=== PATIENT | male | born 1985 | race African-American/Black ===

== ENCOUNTER 2021-08-13 15:29 | Emergency (ER) | payer SELFPAY ==
[2021-08-13] MEDS ORDERED: Ondansetron 4 MG/2 ML SDV IVPUSH ONE ×2 (16:19→16:34)
[2021-08-13] MEDS ORDERED: Sodium Chloride 0.9% 1,000 ML IV ONE (16:19)
[2021-08-13] MEDS ORDERED: Ketorolac 30 MG/ML SDV IVPUSH ONE (16:19)
--- NOTE | 2021-08-13 16:36 | EDM.PDOC ---
ED HPI GENERAL MEDICAL PROBLEM - General Chief Complaint: Headache Stated Complaint: MIGRAAINE Time Seen by Provider: 08/13/21 15:33 Source of Information: Reports: Patient History Limitations: Reports: No Limitations - History of Present Illness INITIAL COMMENTS - FREE TEXT/NARRATIVE: HISTORY AND PHYSICAL: History of present illness: Patient is a 35-year-old male, who identifies as female, presents to the emergency room with complaints of headache, nausea, increased thirst, and urination over the past few days. Patient is concerned he may have diabetes as this does run in his family. Patient currently does do hormone therapy although there has not been any changes on this. Patient denies any fever, chills, headache, change in vision, syncope or near syncope. Denies any chest pain, back pain, shortness of breath or cough. Denies any abdominal pain, diarrhea, constipation or dysuria. Has not noted any blood in urine or stool. Patient has been eating and drinking appropriately. No recent travel or sick contacts. Review of systems: As per history of present illness and below otherwise all systems reviewed and negative. Past medical history: As per history of present illness and as reviewed below otherwise noncontributory. Surgical history: As per history of present illness and as reviewed below otherwise noncontributory. Social history: See social history for further information Family history: As per history of present illness and as reviewed below otherwise noncontributory. Physical exam: General: Well developed and well nourished. Alert and orientated x 3. Nontoxic in appearance and in no acute distress. Vital signs are stable and have been reviewed by me. Nursing notes were reviewed. HEENT: Atraumatic, normocephalic, pupils equal and reactive bilaterally, negative for conjunctival pallor or scleral icterus, mucous membranes moist, TMs normal bilaterally, throat clear, neck supple, nontender, trachea midline. No drooling or trismus noted. No meningeal signs. No hot potato voice noted. Lungs: Clear to auscultation bilaterally. No wheezes, rales, or rhonchi. Chest nontender. Normal work of breathing, no accessory muscles used. Heart: S1S2, regular rate and rhythm without overt murmur, gallops, or rubs. No JVD. No peripheral edema Abdomen: Soft, nondistended, nontender. Normoactive bowel sounds. Negative for masses or costovertebral tenderness. Pelvis: Stable nontender. Skin: Intact, warm, dry. No lesions or rashes noted. Hematologic: No petechiae or purpra. Mucosa appropriate color and normal nail bed color and refill. Extremities: Atraumatic, moves all extremities per self without difficulty or deficits, negative for cords or calf pain. Neurovascular unremarkable. Neuro: Awake, alert, oriented. Cranial nerves II through XII unremarkable. Cerebellum unremarkable. Motor and sensory unremarkable throughout. Exam nonfocal. Psychiatric: Mood and affect are appropriate. Normal thought process. Answering questions appropriately. Please note that the patient was seen and evaluated during the 2019 SARS-CoV-2 novel coronavirus pandemic period. Community viral transmission is ongoing at time of this encounter and the emergency department is operating under pandemic response procedures. Medical Decision Making: Patient is a 35-year-old male who presents to the emergency room with complaints of a headache, nausea and concerns of diabetes. States that diabetes runs in his family and he is concerned that his symptoms are related to high blood sugar. Physical exam is unremarkable. Patient currently does take hormone therapy, transitioning from male to female. States he has not had any recent changes in medication. Patient does feel improved after IV fluids and medication. Lab work is unremarkable. I have talked with the patient about today's findings, in addition to providing specific details for plan of care. Reassessment at the time of disposition demonstrates that the patient is in no acute distress. The patient is stable for discharge, counseling was provided and we discussed in great detail signs and symptoms that would prompt them to return to the Emergency Department. Medication, follow up and supportive care measures were reviewed and discussed. Voices understanding and is agreeable to plan of care. Denies any further questions or concerns at this time. Diagnostics: CBC, CMP Therapeutics: IV fluids, Toradol Prescription: None Impression: Headache Plan: 1. You were evaluated today on an emergent basis. Your labs are normal today. If your symptoms should worsen, new symptoms develop or any of the signs and symptoms we discussed should arise please return to the emergency room or call 911 (if needed). 2. You can alternate Tylenol and ibuprofen as needed for pain and fever management. 3. We encourage you to follow up with your primary care provider and/or recommended specialist in the next few days for re-evaluation and further care/management. Definitive disposition and diagnosis as appropriate pending reevaluation and review of above. headache Pain Score (Numeric/FACES): 5 - Related Data Allergies Allergy/AdvReac Type Severity Reaction Status Date / Time No Known Allergies Allergy Verified 08/13/21 16:21 Home Meds: Home Meds Estriol 0.25 mg IM WEEKLY 08/13/21 [History] Progesterone, Micronized [Progesterone] 1 tab PO DAILY 08/13/21 [History] Past Medical History HEENT History: Reports: None Cardiovascular History: Reports: None Respiratory History: Reports: Asthma Gastrointestinal History: Reports: None Genitourinary History: Reports: None Musculoskeletal History: Reports: None Neurological History: Reports: None Psychiatric History: Reports: None Endocrine/Metabolic History: Reports: None Hematologic History: Reports: None Immunologic History: Reports: None Oncologic (Cancer) History: Reports: None Dermatologic History: Reports: None - Infectious Disease History Infectious Disease History: Reports: None - Past Surgical History Head Surgeries/Procedures: Reports: None HEENT Surgical History: Reports: None Cardiovascular Surgical History: Reports: None Respiratory Surgical History: Reports: None GI Surgical History: Reports: None Male Surgical History: Reports: None Endocrine Surgical History: Reports: None Neurological Surgical History: Reports: None Musculoskeletal Surgical History: Reports: None Oncologic Surgical History: Reports: None Dermatological Surgical History: Reports: None Social & Family History - Family History Family Medical History: No Pertinent Family History - Tobacco Use Years of Tobacco use: 10 Packs/Tins Daily: 0.5 ED ROS GENERAL - Review of Systems Review Of Systems: Comprehensive ROS is negative, except as noted in HPI. ED EXAM, GENERAL - Physical Exam Exam: See Below (See dictation) Course - Vital Signs Last Recorded V/S: Last Vital Signs Temp 97 F 08/13/21 18:40 Pulse 71 08/13/21 18:40 Resp 18 08/13/21 18:40 BP 134/90 08/13/21 18:40 Pulse Ox 94 L 08/13/21 18:40 - Orders/Labs/Meds Labs: Laboratory Tests 08/13/21 08/13/21 Range/Units 17:03 17:03 WBC 10.24 (4.0-11.0) K/uL RBC 4.65 (4.50-5.90) M/uL Hgb 13.7 (13.0-17.0) g/dL Hct 40.4 (38.0-50.0) % MCV 86.9 (80.0-98.0) fL MCH 29.5 (27.0-32.0) pg MCHC 33.9 (31.0-37.0) g/dL RDW Std Deviation 42.4 (28.0-62.0) fl RDW Coeff of Klever 13 (11.0-15.0) % Plt Count 231 (150-400) K/uL MPV 10.90 (7.40-12.00) fL Neut % (Auto) 74.9 (48.0-80.0) % Lymph % (Auto) 16.1 (16.0-40.0) % Tama % (Auto) 6.7 (0.0-15.0) % Eos % (Auto) 2.1 (0.0-7.0) % Baso % (Auto) 0.2 (0.0-1.5) % Neut # (Auto) 7.7 H (1.4-5.7) K/uL Lymph # (Auto) 1.7 (0.6-2.4) K/uL Tama # (Auto) 0.7 (0.0-0.8) K/uL Eos # (Auto) 0.2 (0.0-0.7) K/uL Baso # (Auto) 0.0 (0.0-0.1) K/uL Nucleated RBC % 0.0 /100WBC Nucleated RBCs # 0 K/uL Sodium 138 (136-148) mmol/L Potassium 4.1 (3.5-5.1) mmol/L Chloride 104 (98-107) mmol/L Carbon Dioxide 24.3 (21.0-32.0) mmol/L BUN 17 (7.0-18.0) mg/dL Creatinine 1.3 (0.8-1.3) mg/dL Est Cr Clr Drug Dosing 80.82 mL/min Estimated GFR (MDRD) > 60.0 ml/min Glucose 91 (74-106) mg/dL Calcium 8.5 (8.5-10.1) mg/dL Total Bilirubin 0.1 L (0.2-1.0) mg/dL AST 16 (15-37) IU/L ALT 20 (14-63) IU/L Alkaline Phosphatase 70 (46-116) U/L Total Protein 7.1 (6.4-8.2) g/dL Albumin 3.1 L (3.4-5.0) g/dL Globulin 4.0 (2.6-4.0) g/dL Albumin/Globulin Ratio 0.8 L (0.9-1.6) Meds: Medications Discontinued Medications Generic Name Dose Route Start Last Admin Trade Name Freq PRN Reason Stop Dose Admin Sodium Chloride 1,000 mls @ 999 mls/hr 08/13/21 16:19 08/13/21 17:16 Normal Saline IV 08/13/21 17:19 999 mls/hr STAT ONE Administration Ketorolac Tromethamine 30 mg 08/13/21 16:19 08/13/21 17:16 Ketorolac 30 Mg/Ml Sdv IVPUSH 08/13/21 16:20 30 mg ONETIME ONE Administration Ondansetron HCl 4 mg 08/13/21 16:19 08/13/21 17:16 Ondansetron 4 Mg/2 Ml Sdv IVPUSH 08/13/21 16:20 4 mg ONETIME ONE Administration Ondansetron HCl 4 mg 08/13/21 16:34 08/13/21 17:13 Ondansetron 4 Mg/2 Ml Sdv IVPUSH 08/13/21 16:35 Not Given ONETIME ONE Departure - Departure Time of Disposition: 18:23 Disposition: Home, Self-Care 01 Clinical Impression: Headache Qualifiers: Headache type: unspecified Headache chronicity pattern: acute headache Intractability: not intractable Qualified Code(s): R51.9 - Headache, unspecified - Discharge Information Instructions: General Headache Without Cause, [id number] Referrals: PCP,None [Primary Care Provider] - Forms: ED Department Discharge Additional Instructions: The following information is given to patients seen in the emergency department who are being discharged to home. This information is to outline your options for follow-up care. We provide all patients seen in our emergency department with a follow-up referral. The need for follow-up, as well as the timing and circumstances, are variable depending upon the specifics of your emergency department visit. If you don't have a primary care physician on staff, we will provide you with a referral. We always advise you to contact your personal physician following an emergency department visit to inform them of the circumstance of the visit and for follow-up with them and/or the need for any referrals to a consulting specialist. The emergency department will also refer you to a specialist when appropriate. This referral assures that you have the opportunity for follow-up care with a specialist. All of these measure are taken in an effort to provide you with optimal care, which includes your follow-up. Under all circumstances we always encourage you to contact your private physician who remains a resource for coordinating your care. When calling for follow-up care, please make the office aware that this follow-up is from your recent emergency room visit. If for any reason you are refused follow-up, please contact the [facility] Emergency Department at and asked to speak to the emergency department charge nurse. [facility] [address] [place], [place] [id number] [place] [address] Thank you for choosing the [facility] emergency department in [place] for your medical needs today. It was a pleasure caring for you. Today you were seen in the emergency department for headache. 1. You were evaluated today on an emergent basis. Your labs are normal today. If your symptoms should worsen, new symptoms develop or any of the signs and sy mptoms we discussed should arise please return to the emergency room or call 911 (if needed). 2. You can alternate Tylenol and ibuprofen as needed for pain and fever management. 3. We encourage you to follow up with your primary care provider and/or recommended specialist in the next few days for re-evaluation and further care/management. Sepsis Event Note (ED) - Evaluation Sepsis Screening Result: No Definite Risk - Focused Exam Vital Signs: Vital Signs Temp Pulse Resp BP Pulse Ox 08/13/21 18:40 97 F 71 18 134/90 94 L 08/13/21 16:21 96.8 F L 86 18 129/89 95
[2021-08-13 18:17] LABS: BLOOD UREA NITROGEN,BUN 17 mg/dL (7.0-18.0); CARBON DIOXIDE,CO2 24.3 mmol/L (21.0-32.0); CHLORIDE,CL 104 mmol/L (98-107); GLUCOSE RANDOM 91 mg/dL (74-106); POTASSIUM,K 4.1 mmol/L (3.5-5.1); SODIUM,NA 138 mmol/L (136-148)
== END 2021-08-13 18:47 | disposition home or self-care (01) ==
LOC: MW.ED 15:29
DX: R51.9 Headache, unspecified (principal); R11.0 Nausea; R35.0 Frequency of micturition; Z72.0 Tobacco use
CPT/HCPCS: 36415; 80053; 85025; 96374; 96375; 99284; J1885; J2405; J7030

== ENCOUNTER 2021-11-25 15:10 | Emergency (ER) | payer MEDICAID ==
[2021-11-25] MEDS ORDERED: Azithromycin 250 MG Tab PO STA (16:14)
[2021-11-27 13:06] LABS: C.TRACHOMATIS BY TMA Negative (Negative); N.GONORRHOEAE BY TMA Negative (Negative)
== END 2021-11-25 16:55 | disposition home or self-care (01) ==
LOC: MW.ED 15:10
DX: R36.9 Urethral discharge, unspecified (principal)
CPT/HCPCS: 81003; 87491; 87591; 99283; A9270

== ENCOUNTER 2021-12-16 20:33 | Emergency (ER) | payer MEDICAID | END 2021-12-16 21:32 | disposition home or self-care (01) | LOC: EDSEX → MW.ED 20:33 | DX: R31.9 Hematuria, unspecified (principal); J45.909 Unspecified asthma, uncomplicated; Z79.899 Other long term (current) drug therapy | CPT/HCPCS: 81001; 99283 ==

== ENCOUNTER 2022-01-12 16:19 | Emergency (ER) | payer MEDICAID ==
[2022-01-12] MEDS ORDERED: Lidocaine 2% Viscous Solution 15 ML UD PO ONE (17:04)
[2022-01-12] MEDS ORDERED: Benzocaine 20% Topical Spray UD MUCMEM ONE (17:04)
== END 2022-01-12 17:21 | disposition home or self-care (01) ==
LOC: EDSEX 16:19 → MW.ED 16:19
DX: K04.7 Periapical abscess without sinus (principal)
CPT/HCPCS: 99282; A9270

== ENCOUNTER 2022-03-07 09:51 | Emergency (ER) | payer MEDICAID | END 2022-03-07 10:32 | disposition home or self-care (01) | LOC: MW.ED 09:51 | DX: L25.9 Unspecified contact dermatitis, unspecified cause (principal); Z91.018 Allergy to other foods | CPT/HCPCS: 99282 ==

== ENCOUNTER 2022-05-08 06:29 | Day surgery (SDC) | payer MEDICAID ==
[~2022-05-08 06:29] MED LIST: Lactated Ringers 1,000 ML IV SCH; ceFAZolin 2 GM in Premix Bag 1 BAG IV ONE
[2022-05-08] MEDS ORDERED: Bupivacaine 0.5% 30 ML SDV ONE ×2 (07:17→07:29)
[2022-05-08] MEDS ORDERED: ceFAZolin 1 GM Vial ONE (07:17)
[2022-05-08] MEDS ORDERED: Propofol 200 MG/20 ML SDV ONE (07:21)
[2022-05-08] MEDS ORDERED: fentaNYL 100 MCG/2 ML SDV ONE (07:21)
[2022-05-08] MEDS ORDERED: Dexmedetomidine 200 MCG/2 ML SDV ONE (07:21)
[2022-05-08] MEDS ORDERED: Bupivacaine 0.25%/EPINEPHrine 1:200,000 10 ML SDV ONE (07:29)
[2022-05-08] MEDS ORDERED: Bupivacaine 0.5% 10 ML SDV ONE (07:29)
[2022-05-08] MEDS ORDERED: Albuterol 0.083% 2.5 MG/3 ML Neb Soln NEB PRN (07:41)
[2022-05-08] MEDS ORDERED: Ondansetron 4 MG/2 ML SDV IVPUSH PRN ×2 (07:41→10:41)
[2022-05-08] MEDS ORDERED: HYDROmorphone 1 MG/ML Syringe IVPUSH PRN (07:41)
[2022-05-08] MEDS ORDERED: Naloxone 0.4 MG/ML SDV IVPUSH PRN (07:41)
[2022-05-08] MEDS ORDERED: fentaNYL 50 MCG/ML SDV IVPUSH PRN (07:41)
[2022-05-08] MEDS ORDERED: Metoclopramide 10 MG/2 ML SDV IVPUSH PRN (07:41)
[2022-05-08] MEDS ORDERED: Morphine 2 MG/ML SYRINGE IVPUSH PRN ×2 (07:41→10:41)
[2022-05-08] MEDS ORDERED: fentaNYL 250 MCG/5 ML SDV ONE (08:27)
[2022-05-08] MEDS ORDERED: Ondansetron 4 MG/2 ML SDV ONE (09:03)
[2022-05-08] MEDS ORDERED: Ketorolac 30 MG/ML SDV ONE (10:20)
[2022-05-08] MEDS ORDERED: Acetaminophen/HYDROcodone 325-5 MG Tab PO PRN ×2 (10:41→10:56)
[2022-05-08] MEDS ORDERED: Lactated Ringers 1,000 ML IV SCH (10:45)
[2022-05-08] MEDS ORDERED: Acetaminophen/HYDROcodone 325-5 MG Tab PO ONE (11:56)
== END 2022-05-08 13:00 | disposition home or self-care (01) ==
LOC: MW.SDS 06:29
PROVIDERS: ATTEND Surgery
DX: K40.30 Unilateral inguinal hernia, with obstruction, without gangrene, not specified as recurrent (principal); E66.9 Obesity, unspecified; B20 Human immunodeficiency virus [HIV] disease; Z91.013 Allergy to seafood; Z79.51 Long term (current) use of inhaled steroids; Z79.899 Other long term (current) drug therapy; Z79.890 Hormone replacement therapy; Z68.33 Body mass index [BMI] 33.0-33.9, adult; Z87.891 Personal history of nicotine dependence
CPT/HCPCS: 49507; A9270; J0131; J0690; J1885; J2704; J3010; J3490; J7120; 00830; 64486; C1781; J2405

== ENCOUNTER 2022-06-15 13:11 | Emergency (ER) | payer MEDICAID ==
[2022-06-15] MEDS ORDERED: Lidocaine 2% Viscous Solution 15 ML UD PO ONE (14:14)
[2022-06-15] MEDS ORDERED: Benzocaine 20% Topical Spray UD MUCMEM ONE (14:14)
== END 2022-06-15 14:40 | disposition home or self-care (01) ==
LOC: MW.ED 13:11
DX: K04.7 Periapical abscess without sinus (principal); E66.9 Obesity, unspecified; Z68.33 Body mass index [BMI] 33.0-33.9, adult; Z91.018 Allergy to other foods
CPT/HCPCS: 99282; A9270

== ENCOUNTER 2023-03-03 08:41 | Emergency (ER) | payer MEDICAID ==
[2023-03-03 09:14] LABS: APPEARANCE,URINE CLEAR; BILIRUBIN,URINE NEGATIVE (NEGATIVE); COLOR,URINE YELLOW; GLUCOSE,URINE NEGATIVE (NEGATIVE); KETONES,URINE NEGATIVE (NEGATIVE); LEUKOCYTE ESTERASE,URINE NEGATIVE (NEGATIVE); NITRITE,URINE NEGATIVE (NEGATIVE); OCCULT BLOOD,URINE NEGATIVE (NEGATIVE); PROTEIN,URINE NEGATIVE (NEGATIVE); UROBILINOGEN,URINE 0.2 EU/dL (<2.0)
== END 2023-03-03 09:23 | disposition home or self-care (01) ==
LOC: MW.ED 08:41
DX: R30.0 Dysuria (principal); E66.9 Obesity, unspecified; Z68.33 Body mass index [BMI] 33.0-33.9, adult; Z91.013 Allergy to seafood
CPT/HCPCS: 81003; 99283

== ENCOUNTER 2023-05-11 14:43 | Emergency (ER) | payer MEDICAID ==
[2023-05-11] MEDS ORDERED: Ketorolac 60 MG/2 ML SDV IM ONE (15:11)
[2023-05-11] MEDS ORDERED: Benzocaine 20% Topical Spray UD MUCMEM ONE (15:12)
== END 2023-05-11 15:42 | disposition home or self-care (01) ==
LOC: MW.ED 14:43
DX: K08.89 Other specified disorders of teeth and supporting structures (principal); Z91.013 Allergy to seafood; Z21 Asymptomatic human immunodeficiency virus [HIV] infection status
CPT/HCPCS: 96372; 99282; A9270; J1885; 99283

== ENCOUNTER 2023-09-12 19:05 | Emergency (ER) | payer MEDICAID ==
[2023-09-12] MEDS ORDERED: Penicillin V Potassium 500 MG Tab PO STA (19:21)
[2023-09-12] MEDS ORDERED: Acetaminophen/oxyCODONE 325-5 MG Tab PO ONE (19:21)
== END 2023-09-12 19:56 | disposition home or self-care (01) ==
LOC: MW.ED 19:05
DX: K04.7 Periapical abscess without sinus (principal); E66.9 Obesity, unspecified; Z68.32 Body mass index [BMI] 32.0-32.9, adult; Z21 Asymptomatic human immunodeficiency virus [HIV] infection status; Z91.013 Allergy to seafood
CPT/HCPCS: 99282; A9270; 99283

== ENCOUNTER 2023-09-25 13:50 | Emergency (ER) | payer MEDICAID ==
[2023-09-25 14:45] LABS: CORONAVIRUS COVID-19 NAA NEGATIVE (NEGATIVE); INFLUENZA A NAA POSITIVE (NEGATIVE); INFLUENZA B NAA NEGATIVE (NEGATIVE)
[2023-09-25] MEDS ORDERED: Albuterol/Ipratropium 3.0-0.5 MG/3 ML Neb Soln NEB ONE (15:33)
== END 2023-09-25 16:29 | disposition home or self-care (01) ==
LOC: MW.ED 13:50
DX: J10.1 Influenza due to other identified influenza virus with other respiratory manifestations (principal); E66.9 Obesity, unspecified; Z20.822 Contact with and (suspected) exposure to COVID-19; Z91.013 Allergy to seafood; Z79.899 Other long term (current) drug therapy; Z68.33 Body mass index [BMI] 33.0-33.9, adult
CPT/HCPCS: 0240U; 99283; J7620-GY

== ENCOUNTER 2024-01-05 21:19 | Emergency (ER) | payer MEDICAID ==
[2024-01-05] MEDS: Ondansetron 4 MG/2 ML SDV IVPUSH ONE (21:53)
[2024-01-05] MEDS: Ketorolac 30 MG/ML SDV IVPUSH ONE (21:53)
[2024-01-05] MEDS: Albuterol/Ipratropium 3.0-0.5 MG/3 ML Neb Soln NEB ONE (21:53)
[2024-01-05] MEDS: Sodium Chloride 0.9% 1,000 ML IV ONE (21:55)
[2024-01-05 22:04] LABS: BASOPHILS ABSOLUTE AUTO 0.02 K/uL (0.00-0.20); BASOPHILS PERCENT AUTO 0.2 % (0.0-1.0); EOSINOPHILS ABSOLUTE AUTO 0.18 K/uL (0.00-0.45); EOSINOPHILS PERCENT AUTO 1.9 % (0.0-6.0); HEMATOCRIT 39.3 % (42.0-52.0); HEMOGLOBIN 13.5 g/dL (14.0-18.0); IMMATURE GRAN ABSOLUTE AUTO 0.02 K/uL (0.00-0.05); IMMATURE GRAN PERCENT AUTO 0.2 % (0.0-0.4); LYMPHOCYTES ABSOLUTE AUTO 0.93 K/uL (1.00-4.80); LYMPHOCYTES PERCENT AUTO 10.1 % (24.0-44.0); MEAN CORPUSCULAR HEMOGLOBIN 27.7 pg (28.0-32.0); MEAN CORPUSCULAR HGB CONC 34.4 g/dL (32.0-36.0); MEAN CORPUSCULAR VOLUME 80.7 fL (83.0-99.0); MEAN PLATELET VOLUME 10.4 fL (9.4-12.4); MONOCYTES ABSOLUTE AUTO 0.66 K/uL (0.00-0.80); MONOCYTES PERCENT AUTO 7.1 % (0.0-8.0); NEUTROPHILS ABSOLUTE AUTO 7.43 K/uL (1.80-7.70); NEUTROPHILS PERCENT AUTO 80.5 % (41.0-71.0); PLATELET COUNT,PLT 195 K/uL (150-400); RED BLOOD CELL COUNT 4.87 M/uL (4.52-5.90); WHITE BLOOD CELL COUNT,WBC 9.24 K/uL (3.9-11.3)
[2024-01-05 22:29] LABS: A/G RATIO 0.9 (0.9-1.6); ALANINE AMINOTRANSFERASE,ALT 23 IU/L (14-63); ALBUMIN 3.5 g/dL (3.4-5.0); ALKALINE PHOSPHATASE 76 U/L (46-116); ASPARTATE AMNIOTRANSFERASE,AST 20 IU/L (15-37); BILIRUBIN TOTAL 0.2 mg/dL (0.2-1.0); BLOOD UREA NITROGEN,BUN 12 mg/dL (7.0-18.0); CALCIUM 9.4 mg/dL (8.5-10.1); CARBON DIOXIDE,CO2 22.4 mmol/L (21.0-32.0); CHLORIDE,CL 102 mmol/L (98-107); CREATININE 1.3 mg/dL (0.8-1.3); GLUCOSE RANDOM 84 mg/dL (74-106); LIPASE 12 U/L (16-77); MAGNESIUM 1.5 mg/dL (1.8-2.4); POTASSIUM,K 3.4 mmol/L (3.5-5.1); PROTEIN TOTAL,TP 7.5 g/dL (6.4-8.2); SODIUM,NA 137 mmol/L (136-148)
[2024-01-05 22:30] LABS: ESTIMATED GFR 73 mL/min (>60)
[2024-01-05 22:44] LABS: CORONAVIRUS COVID-19 NAA NEGATIVE (NEGATIVE); INFLUENZA A NAA NEGATIVE (NEGATIVE); INFLUENZA B NAA NEGATIVE (NEGATIVE); RESPIRATORY SYNCYTIAL VIR NAA NEGATIVE (NEGATIVE)
== END 2024-01-05 23:14 | disposition home or self-care (01) ==
LOC: MW.ED 21:19
DX: J18.9 Pneumonia, unspecified organism (principal); Z91.013 Allergy to seafood; Z79.899 Other long term (current) drug therapy; Z75.8 Other problems related to medical facilities and other health care
CPT/HCPCS: 0241U; 36415; 71045; 80053; 83690; 83735; 85025; 96361; 96374; 96375; 99285; J1885; J2405; J7030; J7620-GY

== ENCOUNTER 2024-03-12 09:58 | Emergency (ER) | payer MEDICAID ==
[2024-03-12 10:32] LABS: APPEARANCE,URINE CLEAR; BILIRUBIN,URINE NEGATIVE (NEGATIVE); COLOR,URINE YELLOW; GLUCOSE,URINE NEGATIVE (NEGATIVE); KETONES,URINE NEGATIVE (NEGATIVE); LEUKOCYTE ESTERASE,URINE NEGATIVE (NEGATIVE); NITRITE,URINE NEGATIVE (NEGATIVE); OCCULT BLOOD,URINE NEGATIVE (NEGATIVE); PROTEIN,URINE NEGATIVE (NEGATIVE); UROBILINOGEN,URINE 0.2 EU/dL (<2.0)
[2024-03-12] MEDS: cefTRIAXone 500 MG in Lidocaine 1% 1 ML IM STA (11:34)
[2024-03-12 12:34] LABS: C. TRACHOMATIS BY PCR NOT DETECTED; N. GONORRHOEAE BY PCR NOT DETECTED
== END 2024-03-12 11:37 | disposition home or self-care (01) ==
LOC: MW.ED 09:58
DX: M54.50 Low back pain, unspecified (principal); R35.0 Frequency of micturition; Z75.8 Other problems related to medical facilities and other health care; Z91.013 Allergy to seafood; Z79.51 Long term (current) use of inhaled steroids; Z79.899 Other long term (current) drug therapy; Z21 Asymptomatic human immunodeficiency virus [HIV] infection status; Z87.891 Personal history of nicotine dependence
CPT/HCPCS: 36415; 81003; 86592; 86593; 86780; 86803; 87491; 87591; 96372; 99283; J0696; J3490

== ENCOUNTER 2024-03-22 07:19 | Emergency (ER) | payer MEDICAID ==
[2024-03-22] MEDS ORDERED: Lidocaine 1% 10 ML MDV INJECT ONE (07:34)
[2024-03-22] MEDS: Bupivacaine 0.5% 10 ML SDV INJECT ONE (07:59)
[2024-03-22] MEDS: Lidocaine 1% 5 ML VIAL INJECT ONE (08:00)
== END 2024-03-22 08:03 ==
LOC: MW.ED 07:19
DX: K04.7 Periapical abscess without sinus (principal); Z91.013 Allergy to seafood; Z79.899 Other long term (current) drug therapy; Z79.51 Long term (current) use of inhaled steroids
CPT/HCPCS: 41800; 99283; J0665; J3490

== ENCOUNTER 2024-09-06 14:57 | Emergency (ER) | payer MEDICAID ==
[2024-09-06] MEDS: Orphenadrine 60 MG/2 ML Inj IM STA (16:03)
[2024-09-06] MEDS: Ketorolac 30 MG/ML SDV IM STA (16:03)
[2024-09-06 17:05] LABS: APPEARANCE,URINE CLEAR; BILIRUBIN,URINE NEGATIVE (NEGATIVE); COLOR,URINE YELLOW; GLUCOSE,URINE NEGATIVE (NEGATIVE); KETONES,URINE TRACE mg/dL (NEGATIVE); LEUKOCYTE ESTERASE,URINE NEGATIVE (NEGATIVE); NITRITE,URINE NEGATIVE (NEGATIVE); OCCULT BLOOD,URINE NEGATIVE (NEGATIVE); PROTEIN,URINE NEGATIVE (NEGATIVE); UROBILINOGEN,URINE 0.2 EU/dL (<2.0)
== END 2024-09-06 17:34 | disposition home or self-care (01) ==
LOC: MW.ED 14:57
DX: S39.012A Strain of muscle, fascia and tendon of lower back, initial encounter (principal); E66.9 Obesity, unspecified; Z68.37 Body mass index [BMI] 37.0-37.9, adult; Z75.8 Other problems related to medical facilities and other health care; Z91.013 Allergy to seafood; Z79.899 Other long term (current) drug therapy; X50.1XXA Overexertion from prolonged static or awkward postures, initial encounter
CPT/HCPCS: 81003; 96372; 99283; J1885; J2360

== ENCOUNTER 2024-12-30 15:06 | Emergency (ER) | payer MEDICAID | END 2024-12-30 16:55 | disposition home or self-care (01) | LOC: MW.ED 15:06 | DX: J10.1 Influenza due to other identified influenza virus with other respiratory manifestations (principal); E66.9 Obesity, unspecified; Z79.899 Other long term (current) drug therapy; Z75.8 Other problems related to medical facilities and other health care; Z91.013 Allergy to seafood; Z68.33 Body mass index [BMI] 33.0-33.9, adult | CPT/HCPCS: 71045; 71045-26; 87428-QW; 87651; 99283; 99285 ==

== ENCOUNTER 2025-02-06 14:18 | Emergency (ER) | payer MEDICAID ==
[2025-02-06 15:18] LABS: APPEARANCE,URINE CLEAR; BILIRUBIN,URINE NEGATIVE (NEGATIVE); COLOR,URINE YELLOW; GLUCOSE,URINE NEGATIVE (NEGATIVE); KETONES,URINE NEGATIVE (NEGATIVE); LEUKOCYTE ESTERASE,URINE NEGATIVE (NEGATIVE); NITRITE,URINE NEGATIVE (NEGATIVE); OCCULT BLOOD,URINE NEGATIVE (NEGATIVE); PROTEIN,URINE NEGATIVE (NEGATIVE); UROBILINOGEN,URINE 0.2 EU/dL (<2.0)
[2025-02-06] MEDS: Ketorolac 60 MG/2 ML SDV IM ONE (16:03)
[2025-02-06] MEDS: Penicillin V Potassium 500 MG Tab PO ONE (16:04)
[2025-02-06] MEDS ORDERED: Penicillin V Potassium 500 MG Tab PO SCH (21:00)
== END 2025-02-06 16:08 | disposition home or self-care (01) ==
LOC: MW.ED 14:18
DX: K04.7 Periapical abscess without sinus (principal); J45.909 Unspecified asthma, uncomplicated; E66.9 Obesity, unspecified; Z79.899 Other long term (current) drug therapy; Z91.013 Allergy to seafood
CPT/HCPCS: 81003; 96372; 99283; A9270; J1885